=== PATIENT | female | born 1990 | race Caucasian/White ===

== ENCOUNTER 2019-02-23 13:25 | Inpatient (IN) ==
[2019-02-23] MEDS ORDERED: TYLENOL PO ONE (13:40)
[2019-02-23] MEDS ORDERED: NS 1,000 ML IV ONE ×2 (13:40→15:02)
--- NOTE | 2019-02-23 13:55 | PROVIDER DOCUMENTATION ---
HPI-General Adult - General Chief Complaint: Fever Stated Complaint: FEVER,SHAKING Time Seen by Provider: 02/23/19 13:39 Source: patient Allergies/Adverse Reactions: Patient Allergies Allergy/AdvReac Type Severity Reaction Status Date / Time No Known Allergies Allergy Verified 12/31/18 10:01 Home Medications: Home Medication List Medication Instructions Recorded Confirmed Last Taken Type Bupropion HCl [Wellbutrin Xl] 300 mg PO DAILY 12/03/17 06/19/18 12/02/17 08:00 History Clonidine [Catapres] 0.5 mg PO DAILY 06/19/18 06/19/18 Unknown History Cyclobenzaprine [Flexeril] 10 mg PO TID #20 tab 06/19/18 Unknown Rx Duloxetine [Cymbalta] 60 mg PO DAILY 06/19/18 06/19/18 Unknown History Gabapentin 300 mg PO TID 06/19/18 06/19/18 Unknown History Quetiapine Fumarate [Seroquel] 300 mg PO HS 06/19/18 06/19/18 Unknown History Permethrin 5% Cream [Elimite 5% 1 applicatn TOP NOW 2 Days tube 12/31/18 Unknown Rx Cream] Ondansetron [Zofran] 4 mg PO Q8HR PRN #20 tab 02/15/19 Unknown Rx Loratadine [Claritin] 10 mg PO DAILY #30 cap 02/17/19 Unknown Rx - History of Present Illness -Gen Adult Nature of Presenting Problems: Pt. is 29 yof that presents with c/o fever, and body aches for 6 days. Pt. reports she went to another ED and was told she had allergies. Pt. reports something isn't right. She states she has been coughing and is a smoker. She denies taking any medications. Location of Pain/Injury: reports: generalized. denies: none, head, face, mouth, neck, chest, upper extremity, hand(s), abdomen, back, pelvis, genitalia, lower extremity, feet, upper body, lower body, other Pain Radiation: reports: no radiation. denies: arm(s), back, buttocks, chest, epigastric, feet, groin, jaw, flank (L), legs (lower), LLQ, LUQ, neck, periumbilical, flank (R), RLQ, RUQ, shoulder(s), scapula, scrotal, sternal notch, suprapubic, legs (upper), urethral, vaginal, other Quality of Pain: reports: aching. denies: burning, cramping, pressure, stabbing, throbbing, tightness Severity: reports: moderate. denies: mild, severe Onset/Duration: reports: gradual, 6 days ago Timing: reports: still present, changing over time, getting worse. denies: improving, gone now, constant Context/Activities at Onset: reports: none. denies: light activity, moderate activity, vigorous activity, recent emotional stress, recent physical stress, recent trauma history, possible bad food, cold exposure, eating, out of country travel, rest, sleep, sexual activity, other Modifying Factors: improves with: nothing Associated Symptoms: reports: cough, fever/chills, muscle aches. denies: denies symptoms, anxiety, arm pain, back/neck pain, chest pain, constipation, diaphoresis, diarrhea, dizziness, EENT symptoms, fatigue, genitourinary problems, headaches, heartburn, joint pain, loss of appetite, malaise, sinus congestion/drainage, nausea, rash, seizure, shortness of breath, sensory/motor loss, pain with inspiration, swelling/mass in abdomen, syncope, vomiting, weakness, trouble walking, other Similar Symptoms Previously?: Yes Recently seen or treated by another doctor?: Yes Review of Systems - Adult - REVIEW OF SYSTEMS - ADULT Constitutional: reports: see HPI, chills, fever. denies: fatique, night sweats, weight loss Eyes: reports: no symptoms reported Ears, Nose, Mouth & Throat: reports: no symptoms reported Respiratory: reports: see HPI, cough. denies: dyspnea on exertion, pleurisy, wheezing Gastrointestinal: reports: see HPI, abdominal pain, nausea, vomiting. denies: constipation, diarrhea, frequent heartburn Genitourinary: reports: no symptoms reported Musculoskeletal: reports: see HPI, muscle aches. denies: back pain, joint pain, neck pain Integumentary: reports: no symptoms reported Neurological: reports: no symptoms reported Psychiatric: reports: no symptoms reported Past History - Adult - PAST MEDICAL HISTORY-ADULT Review of Records: reports: Old Records Reviewed, Nursing Assessment Review, Medications Reviewed, Social history reviewed & non-contributory. Major Childhood Illnesses: reports: denies history Cardiovascular: reports: denies history. denies: HTN Respiratory: reports: denies history Gastrointestinal: reports: denies history. denies: GERD Obstetrical/Gynecological: reports: denies history Genitourinary: reports: denies history Musculoskeletal: reports: denies history Neurological: reports: denies history Endocrine/Immune: reports: denies history Other Conditions: reports: other ( hydradenitis) - PRIOR SURGERIES/PROCEDURES Surgical/Procedure History: reports: none - IMMUNIZATION STATUS Childhood Immunizations: See Nurse Assessment Flu Vaccine: See Nurse Assessment - FAMILY HISTORY Family History: reviewed, not pertinent - SOCIAL HISTORY Smoking: cigarettes, greater than 1 pack/day Provider spent 3-5 mins advising pt. on dangers of tobacco.: Discussed manners to quit use, and f/u contacts for add'l counseling. Physical Exam-General - PHYSICAL EXAM-ADULT Initial Vital Signs Reviewed: Yes - CONSTITUTIONAL General Appearance: alert, mild distress. negative: anxious, obtunded, combative - EYES Eyes: PERRL/EOMI, pink conjunctivae. negative: pale conjunctivae, photophobia, subconjunctival hemorrhage - HEAD, EARS, NOSE, MOUTH & THROAT HENMT: normocephalic/atraumatic, moist mucous membranes. negative: angioedema, frontal tenderness, maxillary tenderness - NECK Neck: non-tender, full range of motion, supple, normal inspection. negative: lymphadenopathy, trachial deviation, thyromegaly - RESPIRATORY Respiratory: lungs clear, normal breath sounds. negative: crackles, rales, rhonchi, stridor, wheezing - CARDIOVASCULAR Cardiovascular: regular rate, rhythm, no edema, tachycardia. negative: extra beats, friction rub, irregularly irregular - GASTROINTESTINAL (ABDOMEN) Abdominal Exam: normal bowel sounds, non tender, soft. negative: rigid, rebound, tenderness, hernia, mass - LYMPHATIC Lymphatic: no adenopathy. negative: axilla node tender, cervical node tenderness - MUSCULOSKELETAL Back Exam: normal inspection, no CVA tenderness, no vertebral tenderness. negative: muscle spasm, swelling, vertebral tenderness Extremity: normal range of motion, non-tender, normal gait, normal inspection. negative: deformity, erythema, inflammation, swelling, tenderness Peripheral Pulses: radial (R): 2+, radial (L): 2+ - SKIN Integumentary: normal color, normal turgor, warm/dry. negative: cyanosis, erythema, jaundice, pallor, tenderness - NEUROLOGIC Neurologic: grossly normal, no motor/sensory deficits. negative: aphasia, motor weakness, sensory deficit - PSYCHIATRIC Psych/Mental Status: normal mood/affect, normal thought content, normal thought process, oriented x 3. negative: anxious, paranoid, tearful Progress - PLAN OF CARE/RESULTS Progress/Plan/Lab Results: Vital Signs - 8 hr 02/23/19 13:34 Temperature 102.7 F H Pulse Rate 132 H Respiratory Rate 20 Blood Pressure 108/66 O2 Sat by Pulse Oximetry 97 Orders Category Date Time Status ED: Urine Bedside ORDERED Care 02/23/19 13:39 Active Saline Loc NOW Care 02/23/19 13:39 Active BLOOD CULTURE [BLDCUL] Stat Lab 02/23/19 13:40 Uncollected CBC WITH ELECTRONIC DIFF [HEME] Stat Lab 02/23/19 13:40 Uncollected CK PROFILE [SP CHEM] Stat Lab 02/23/19 13:40 Uncollected COMPREHENSIVE METABOLIC PANEL [CHEM] Stat Lab 02/23/19 13:40 Uncollected INFLUENZA SCREEN A/B Stat Lab 02/23/19 13:51 Uncollected LACTATE, PLASMA [CHEM] Stat Lab 02/23/19 13:40 Uncollected PROTIME WITH INR [COAG] Stat Lab 02/23/19 13:40 Uncollected PTT [COAG] Stat Lab 02/23/19 13:40 Uncollected URINALYSIS W/POSS RFLX CULT [URINALYSIS] Stat Lab 02/23/19 13:39 Uncollected 0.9% Sodium Chloride Inj [Ns] 1,000 ml Med 02/23/19 13:40 Active IV 999 mls/hr Acetaminophen [Tylenol] Med 02/23/19 13:40 Discontinued 1,000 mg PO NOW ONE Result Diagrams: 02/23/19 13:58 02/23/19 13:58 - XRAY 1 XRAY Study: Chest ([facility] [address], [address], [place] [id number] Department of Imaging Patient: KEVIN SALMONADM Date: 02/23/19MR#: [id number] : 1990[id number] Age/Sex: 29/FRoom/Bed: Loc: ED Ordering Physician: Candelario Carias Family Physician: Leandro Lee Reason for Procedure: fever Signed EXAM: CHEST-2 VIEWS HISTORY: fever TECHNIQUE: Chest two views COMPARISON: 04/22/2018 FINDINGS: The lungs are well expanded. The heart is not enlarged. The vessels are not distended. There are no infiltrates. No pleural effusions. Mild to moderate scoliosis. IMPRESSION: No pneumonia. Electronically signed by Amando Mcconnell 02/23/2019 3:05 PM 02/23/19 1505 Interpreting Physician: Amando Mcconnell MD Dictated Date/Time: 02/23/19 1505 cc: Candelario Carias; Leandro Lee) XRAY Interpretation: See note - CONSULTS/PCP/HOSPITALIST Notification #1 *Consult/PCP/Hospitalist*: Yasmeen Chapa Time Discussed: 15:12 Reason/Comments: Admission Consult Disposition: Will see in ED Departure - Departure Date of Disposition Decision: 02/23/19 Time of Disposition Decision: 15:03 DIAGNOSIS: Sepsis due to urinary tract infection, Hypokalemia, Hypocalcemia Disposition: ADMITTED INPATIENT 09 Certified Medical Emergency: Emergent Condition: Stable Referrals and Follow-Ups: Leandro Lee [Primary Care Provider] - - Critical Care Note This patient required my direct & personal management of CC.: No Attestation - Physician/ PÉREZ Attestation Patient care was provided by Advanced Practice Provider:: Yes Advanced Practice Provider:: Candelario Carias Advanced Practice Provider documentation review:: The Mid-level provider documentation, treatment plan and medical decision making was reviewed by the physician who agrees with all treatment and medical decision making by the MLP. The physician spent face to face time with patient:: No Advanced Practice Provider documentation review:: Supervising physician onsite and consulted in the evaluation and care of this patient. The physician did not have a face to face encounter with the patient.
[2019-02-23 14:26] LABS: INR 1.23; PROTIME 16.4 Seconds (11.0-16.0)
[2019-02-23 14:27] LABS: BASO# 0.01 X1000 (0.0-0.2); BASO% 0.1 % (0.0-0.8); EOS# 0.01 X1000 (0.0-0.7); EOS% 0.1 % (0.0-10.0); IMM GRAN# 0.07 X1000 (0.0-0.04); IMM GRAN% 0.4 % (0.0-0.5); LYMPH# 1.25 X1000 (1.2-3.4); LYMPH% 6.5 % (20.5-51.1); MCH 30.6 PG (27-31); MCHC 33.3 g/dL (33-37); MCV 91.7 FL (81-99); MONO# 1.32 X1000 (0.11-0.59); MONO% 6.9 % (1.7-9.3); NEUT# 16.48 X1000 (1.4-6.5); PLT 241 X1000 (130-400); PTT 41.7 Seconds (22.3-41.8); RBC 3.27 XMIL (4.2-5.4); RDW 12.6 % (11.5-14.5); WBC 19.14 X1000 (4.8-10.8)
[2019-02-23 14:34] LABS: URINE SOURCE CLEAN CATCH
[2019-02-23 14:42] LABS: BILIRUBIN URINE NEGATIVE (NEGATIVE); BLOOD URINE TRACE (NEGATIVE); COLOR YELLOW; GLUCOSE URINE NEGATIVE (NEGATIVE); KETONE URINE NEGATIVE (NEGATIVE); LEUKOCYTES URINE LARGE (NEGATIVE); NITRITE URINE POSITIVE (NEGATIVE); PROTEIN URINE 200 mg/dL (NEGATIVE); SP GRAVITY URINE 1.008; TURBIDITY URINE HAZY (CLEAR); UROBILINOGEN URINE NORMAL (NORMAL)
[2019-02-23 14:44] LABS: UR EPITHELIAL CELLS >10 /HPF (<10); URINE BACTERIA 2+ /HPF; URINE RBC <10 /HPF (<10); URINE WBC TNTC /HPF (<10)
[2019-02-23] MEDS ORDERED: ROCEPHIN 1 GM in NS 50 ML IV ONE (14:46)
[2019-02-23 14:58] LABS: AGAP 11; ALB/GLOB RATIO 0.9; ALBUMIN 3.1 g/dL (3.5-5.0); ALKALINE PHOSPHATASE 135 U/L (32-104); BUN 7 mg/dL (8-22); CHLORIDE 98 mmol/L (98-107); CK PROFILE 30 U/L (24-173); COSMO 271; CREATININE 0.9 mg/dL (0.5-0.9); ESTIMATED GFR > 60; GLUCOSE 151 mg/dL (70-104); GOT 6 U/L (10-30); GPT 8 U/L (10-36); SODIUM 135 mmol/L (136-145); TCO2 26 mmol/L (25-35); TOTAL BILIRUBIN 0.36 mg/dL (0.20-1.00); TOTAL PROTEIN 6.6 g/dL (6.3-8.3)
[2019-02-23] MEDS ORDERED: KLOR-CON PO ONE (15:01)
[2019-02-23] MEDS ORDERED: LEVAQUIN 750 MG/D5W 750 MG/150 ML IVPB IV ONE (15:03)
--- NOTE | 2019-02-23 15:07 | Diag Imaging Result Doc PS360 ---
EXAM: CHEST-2 VIEWS HISTORY: fever TECHNIQUE: Chest two views COMPARISON: 04/22/2018 FINDINGS: The lungs are well expanded. The heart is not enlarged. The vessels are not distended. There are no infiltrates. No pleural effusions. Mild to moderate scoliosis. IMPRESSION: No pneumonia. Electronically signed by Amando Mcconnell 02/23/2019 3:05 PM
[2019-02-23] MEDS: NS 1,000 ML IV SCH (15:45)
[2019-02-23] MEDS ORDERED: VANCOMYCIN IV PER PHARMACY MISC SCH (16:00)
[2019-02-23 16:18] LABS: IRON SATURATION 7 %; TIBC 151 ug/dL; TOTAL IRON 10 ug/dL (49-151); UNBOUND IRON 141 ug/dL (112-346)
--- NOTE | 2019-02-23 16:28 | HISTORY AND PHYSICAL ---
PRIMARY CARE PROVIDER: Dr. Lee. CHIEF COMPLAINT: Cold sweats, achy body, headache, and strong smelling urine. HISTORY OF PRESENT ILLNESS: Ms. Ramona Sinclair is a 29-year-old female with a medical history of anxiety, depression, schizoaffective disorder, bipolar disorder, and PTSD who states a week ago she presented to [facility] due to falling down a wheelchair ramp and hitting the back of her head and then she also represented to [facility] three days ago with complaints of achy body, cold sweats, and headache. She was diagnosed with seasonal allergies and sent home with Claritin. Today she presents with a white blood cell count of 19,000 and fever of 102.7. She has the same complaints of cold sweats, achy body, headache, strong smelling urine, and frequent urination but small amounts. Urinalysis reveals positive nitrate urinary tract infection along with tachycardia and elevated white count. Lactate is normal but is heading towards sepsis. Blood pressure is stable, so will admit and hydrate her and give her antibiotics, at least overnight. Other symptoms she had were nausea as well as some loose stools, but no abdominal pain. PAST MEDICAL HISTORY: 1. Anxiety and depression. 2. Schizoaffective disorder. 3. PTSD. 4. Bipolar disorder, type II. SURGICAL HISTORY: None. FAMILY HISTORY: Her mother had diabetes, myocardial infarction, hyperlipidemia, and hypertension. Her father had coronary artery disease, diabetes, dementia, and CKD. SOCIAL HISTORY: A half pack per day smoker since age of 9. Denies alcohol or illicit drug use. She is in the room with a male restaurant greeter and two children. ALLERGIES: No known drug allergies. HOME MEDICATIONS: Have not been reconciled, but looks like she is on 1. Catapres. 2. Cymbalta. 3. Neurontin. 4. Seroquel. 5. Wellbutrin. 6. Zofran. 7. Claritin. 8. Elimite. 9. Flexeril. REVIEW OF SYSTEMS: A 14-point review of systems are complete and all are negative except for those mentioned in the above HPI. PHYSICAL EXAMINATION: VITAL SIGNS: Temperature is 102.7, probably back down now, heart rate was 99 at the bedside, last recorded 103, respiratory rate 19, blood pressure 116/72, and O2 saturation 99% on room air. GENERAL: Ms. Ramona Sinclair is a 29-year-old female. She is in no acute distress. She is able to answer questions appropriately. HEENT: Atraumatic. Normocephalic. Pupils equal, round, and reactive to light. Extraocular movements intact. Mucous membranes are dry. NECK: Trachea is midline. CARDIOVASCULAR: S1 and S2. Regular rate and rhythm. No rubs, gallops, or murmurs. No lower extremity edema. +2 dorsalis and radial pulses. Negative JVD or carotid bruits. PULMONARY: Clear to auscultate bilateral breath sounds. No accessory muscle use or work of breathing noted. GI: Soft, nontender, and nondistended. Positive bowel sounds x4. EXTREMITIES: Moves all extremities equally with full range of motion. NEURO: Alert and oriented x3. Follows commands. Sensory is intact. SKIN: Warm, dry, and intact. LABORATORY DATA: White blood cells 19,000, hemoglobin 10, hematocrit 30, and platelet count 241. INR is 1.23. PTT is 41.7. Sodium 135, potassium 3.0, BUN 11, creatinine 0.9, glucose 151, calcium 8.0, bilirubin 0.36, AST 6, ALT 8. CK 30. Albumin 3.1. Serum lactate 1.3. Urinalysis with 200 protein, trace of blood, positive nitrite, large leukocytes, too numerous to count white blood cells, 2+ bacteria. Microbiology - blood cultures x2 obtained. Urine culture pending. Influenza screen negative. IMAGING: Chest x-ray: Negative for any acute findings. ASSESSMENT AND PLAN: 1. Urinary tract infection now with positive nitrites. She got Rocephin and Mell in the emergency room. Will continue with Rocephin for in the morning and likely can be discharged with oral Levaquin. She is receiving intravenous fluid hydration. 2. Lactate negative sepsis secondary to urinary tract infection unless the blood cultures come back positive. Those have been obtained and are pending. Will add some vancomycin just in case there is some issue with bacteremia, as that is even a possibility. She does deny any kind of illicit drug use. 3. Anxiety, depression, schizoaffective disorder, post traumatic stress disorder, and bipolar. She is on several home medications to treat these and will resume those once they are verified by nursing staff. Medication reconciliation will need to be rechecked. 4. Tobacco abuse. Cessation discussed. 5. Hypokalemia. That has been replaced with 20 mEq of oral potassium. 6. Nausea. Antiemetics. 7. Diarrhea. Will do some stool studies. 8. Hyperglycemia. Will check a hemoglobin A1c. Looks like her mom and her dad had diabetes. 9. Anemia. Will check anemia panel and stool for blood as well. 10.Deep venous thrombosis prophylaxis. Sequential compression devices. Dictated by SANTA Crespo for Paulino Chapa MD cc: SANTA Crespo MD
[2019-02-23 16:38] LABS: FREE T4 0.94 ng/dL (0.93-1.70); TSH 0.41 uIUmL (0.27-4.20)
[2019-02-23] MEDS: ROCEPHIN 1 GM in NS 50 ML IV SCH (17:11)
[2019-02-23] MEDS: ZOFRAN IV PRN (18:00)
[2019-02-23] MEDS: PRILOSEC PO SCH (18:00)
--- NOTE | 2019-02-23 18:13 | HISTORY AND PHYSICAL ---
ADDENDUM: Today I saw Ms. Sinclair in the ER. I have seen, I have examined her, I have reviewed her laboratory data as well as her imaging data. Briefly Ms Sinclair presents today because of fever and chills which has been going on for about 4 days associated with frequent bowel movement which is diarrhea and nausea and vomiting. She also refers that her urine has been smelling and she is having frequent urination. Upon presentation she was found to have a temperature of 102.7 degrees with a pulse rate of 132 with a normal blood pressure. Her physical exam was significant for mildly dry mucous membrane and she also has positive left side CVA tenderness. Her lab works is significant for leukocytosis predominantly neutrophilic and her chemistry has hyponatremia with hypokalemia. A chest x-ray this morning revealed unremarkable studies with no pneumonia. ASSESSMENT: 1. Sepsis which could be a combination of urinary tract infection and gastroenteritis. 2. Suspected left pyelonephritis. Patient has been started on intravenous antibiotics. Urine culture has also been ordered. We will follow up accordingly. So far we have not done any abdominal imaging. If patient does not improve with initial management we will scan the abdomen as needed. 3. Nausea and vomiting associated with diarrhea consistent with gastroenteritis most likely viral in etiology. We will do stool studies and follow it up accordingly. 4. Tobacco abuse. Cessation has been discussed. 5. History of anxiety, schizoaffective disorder and posttraumatic stress disorder. The patient will be started on her home medications once she is hemodynamically stable. Blood culture, urine culture have all been done. Patient has been started on IV ceftriaxone. We will follow up on the culture. Replace the current electrolyte abnormalities. I agree with H and P and the plan as dictated in the chart. cc: Paulino Chapa MD [facility]
[2019-02-23] MEDS: TYLENOL PO PRN (18:56)
[2019-02-23] MEDS ORDERED: VANCOMYCIN 2 GM in NS 500 ML IV ONE (19:30)
[2019-02-24] MEDS: ZOFRAN IV PRN (02:31)
[2019-02-24] MEDS: TYLENOL PO PRN ×3 (02:31→16:35)
[2019-02-24] MEDS: NS 1,000 ML IV SCH ×3 (06:28→13:46)
[2019-02-24 08:02] LABS: BASO# 0.01 X1000 (0.0-0.2); BASO% 0.1 % (0.0-0.8); EOS# 0.03 X1000 (0.0-0.7); EOS% 0.2 % (0.0-10.0); HEMATOCRIT 30.5 % (37.0-47.0); HEMOGLOBIN 9.9 g/dL (12.0-16.0); IMM GRAN# 0.07 X1000 (0.0-0.04); IMM GRAN% 0.5 % (0.0-0.5); LYMPH# 1.74 X1000 (1.2-3.4); LYMPH% 11.6 % (20.5-51.1); MCH 30.2 PG (27-31); MCHC 32.5 g/dL (33-37); NEUT# 12.01 X1000 (1.4-6.5); NEUT% 79.6 % (42.2-75.2); PLT 250 X1000 (130-400); RBC 3.28 XMIL (4.2-5.4); RDW 12.7 % (11.5-14.5); WBC 15.06 X1000 (4.8-10.8)
[2019-02-24 08:19] LABS: INR 1.28
[2019-02-24 08:20] LABS: PTT 42.7 Seconds (22.3-41.8)
[2019-02-24 08:27] LABS: AGAP 10; ALB/GLOB RATIO 0.6; ALBUMIN 2.4 g/dL (3.5-5.0); ALKALINE PHOSPHATASE 121 U/L (32-104); BUN 6 mg/dL (8-22); CALCIUM 7.9 mg/dL (8.8-10.2); CHLORIDE 107 mmol/L (98-107); COSMO 278; CREATININE 0.8 mg/dL (0.5-0.9); ESTIMATED GFR > 60; GLUCOSE 79 mg/dL (70-104); GOT 5 U/L (10-30); GPT 7 U/L (10-36); MAGNESIUM 2.1 mg/dL (1.5-2.7); POTASSIUM 3.2 mmol/L (3.5-5.1); SODIUM 141 mmol/L (136-145); TCO2 24 mmol/L (25-35); TOTAL BILIRUBIN 0.31 mg/dL (0.20-1.00); TOTAL PROTEIN 6.2 g/dL (6.3-8.3)
[2019-02-24 08:31] LABS: HEMOGLOBIN A1C 4.9 % (4.8-6.0)
[2019-02-24] MEDS: PRILOSEC PO SCH (09:37)
[2019-02-24] MEDS ORDERED: KLOR-CON PO ONE (13:05)
[2019-02-24] MEDS: ROCEPHIN 1 GM in NS 50 ML IV SCH (14:27)
--- NOTE | 2019-02-24 14:51 | PROGRESS NOTE ---
DATE: 02/24/2019 SUBJECTIVE: Patient reports feeling fine, not nauseated, no fever reported. OBJECTIVE: Vitals: Temperature 98.5 degrees, heart rate 87, respiratory 15, blood pressure 134/73, O2 saturation 100% on room air. General: This is a 29-year-old female lying in bed in no acute distress. Cardiovascular: S1, S2 heard. No murmurs, gallops, or rubs. Regular rate and rhythm. Respiratory: Clear bilaterally to auscultation. No work of breathing or using accessory muscles. Abdomen: Soft, nontender to palpation. Bowel sounds present. No organomegaly. Extremities: No clubbing, cyanosis or edema. Peripheral pulses present in both legs. Neurologic: Patient alert, oriented x3, moves 4 extremities. LABORATORY DATA: Reviewed. ASSESSMENT AND PLAN: 1. Sepsis secondary to urinary tract infection, gastroenteritis. Clinically this patient is doing better, not having fever in the last 24 hours. Definitely less pain in the left side. At this point will continue with ceftriaxone. Result the urine cultures still pending. Will continue to monitor this patient closely. 2. Left pyelonephritis on antibiotics as above. 3. Nausea, vomiting/diarrhea getting better. Will continue with IV fluids. 4. Tobacco abuse. Patient advised to stop smoking. 5. History of schizoaffective disorder, posttraumatic stress disorder. Will continue home medications. 6. Disposition. At this point will wait for results of urine culture and if she is feeling okay patient can be treated with oral medication and we can discharge her between tomorrow and the day after. cc: Sathya Robledo MD
[2019-02-24] MEDS: VANCOMYCIN 1,700 MG in NS 250 ML IV SCH (15:10)
[2019-02-24] MEDS: FLEXERIL PO SCH (18:05)
[2019-02-24] MEDS: NEURONTIN PO SCH (18:05)
[2019-02-24] MEDS: KLONOPIN PO SCH (20:59)
[2019-02-24] MEDS ORDERED: SEROQUEL PO SCH (21:00)
[2019-02-25] MEDS: NS 1,000 ML IV SCH ×2 (03:24→09:44)
[2019-02-25] MEDS: TYLENOL PO PRN (04:44)
[2019-02-25] MEDS: PRILOSEC PO SCH (06:29)
[2019-02-25 07:06] LABS: BASO# 0.01 X1000 (0.0-0.2); BASO% 0.1 % (0.0-0.8); EOS# 0.06 X1000 (0.0-0.7); EOS% 0.6 % (0.0-10.0); HEMATOCRIT 28.6 % (37.0-47.0); HEMOGLOBIN 9.4 g/dL (12.0-16.0); IMM GRAN# 0.06 X1000 (0.0-0.04); IMM GRAN% 0.6 % (0.0-0.5); LYMPH# 1.53 X1000 (1.2-3.4); LYMPH% 14.3 % (20.5-51.1); MCH 30.5 PG (27-31); MCHC 32.9 g/dL (33-37); MCV 92.9 FL (81-99); MONO# 0.79 X1000 (0.11-0.59); MONO% 7.4 % (1.7-9.3); NEUT# 8.28 X1000 (1.4-6.5); PLT 252 X1000 (130-400); RBC 3.08 XMIL (4.2-5.4); RDW 12.8 % (11.5-14.5); WBC 10.73 X1000 (4.8-10.8)
[2019-02-25 07:56] LABS: AGAP 10; BUN 5 mg/dL (8-22); CALCIUM 8.2 mg/dL (8.8-10.2); CHLORIDE 109 mmol/L (98-107); COSMO 280; CREATININE 0.9 mg/dL (0.5-0.9); ESTIMATED GFR > 60; GLUCOSE 84 mg/dL (70-104); POTASSIUM 3.8 mmol/L (3.5-5.1); SODIUM 142 mmol/L (136-145); TCO2 23 mmol/L (25-35)
[2019-02-25] MEDS ORDERED: CLARITIN PO SCH (09:00)
[2019-02-25] MEDS ORDERED: WELLBUTRIN XL PO SCH (09:00)
[2019-02-25] MEDS ORDERED: CYMBALTA PO SCH (09:00)
[2019-02-25] MEDS: VANCOMYCIN 1,700 MG in NS 250 ML IV SCH (09:44)
[2019-02-25] MEDS: KLONOPIN PO SCH (09:45)
[2019-02-25] MEDS: FLEXERIL PO SCH (09:45)
[2019-02-25] MEDS: NEURONTIN PO SCH (09:45)
[2019-02-25 11:50] VITALS: BP 137/81
--- NOTE | 2019-02-25 20:57 | DISCHARGE SUMMARY ---
ADMISSION DATE: 02/23/2019 DISCHARGE DATE: 02/25/2019 DISPOSITION: Home. FOLLOWUP: Will be with primary care doctor, Leandro Lee MD. CONSULTATION: During this admission, none. IMAGING STUDIES: Of significance, a chest x-ray showed no pneumonia. MICROBIOLOGY DATA: Urine culture was positive for E coli which was pansensitive. A blood culture 48 hours was negative. Stool studies were completely unremarkable. ADMISSION DIAGNOSES: 1. Urinary tract infection. 2. Lactate negative sepsis. 3. Anxiety. 4. Tobacco abuse. DISCHARGE DIAGNOSES: 1. Sepsis secondary to urinary tract infection and gastroenteritis. 2. E coli, left pyelonephritis. 3. Viral gastroenteritis. 4. Tobacco abuse. 5. History of schizoaffective disorder and anxiety depression disorder. DISCHARGE MEDICATIONS: 1. Bupropion 300 mg daily. 2. Cymbalta 60 mg daily. 3. Gabapentin 300 mg 3 times per day. 4. Seroquel 300 p.o. at bedtime. 5. Flexeril 10 mg 3 times per day. 6. Claritin. 7. Klonopin 0.5 b.i.d. 8. Cephalexin 500 b.i.d. for 7 days. PRESENTING COMPLAINT: Cold sweats, headache, strong urine smell. HISTORY OF PRESENTING COMPLAINT: Ms. Sinclair is a 29-year-old, female, who is known to have anxiety, depression and schizoaffective disorder, came to the emergency department because of chills, urine discomfort and generalized aches, diarrhea and nausea. The patient was evaluated, was found to have abnormal urinalysis. Her presenting temperature was 102.7, did show signs of toxicity, so she was subsequently admitted for further medical care. HOSPITAL COURSE: Ms. Sinclair was admitted to the medical floor and was adequately hydrated. Urine and blood cultures were done. She was started on broad-spectrum IV antibiotics. She did improve and responded very well to the initial management. Today, her vitals have been stable. Blood pressure is 137/81, pulse is 77, respirations 22, temperature 99. She is completely asymptomatic. The left CVA tenderness is completely gone. Urine culture has come back positive for E coli which is pansensitive. The patient was already on ceftriaxone for 2 days. This will be switched to oral cefazolin and she will complete treatment for 10 days. Ms. Sinclair is also supposed to follow up with Dr. Lee. Other discharge instructions have been discussed with him. The boyfriend was at the bedside with her at the time of the discharge encounter and both expressed understanding of the recommendations. TIME SPENT: For discharge is 32 minutes. cc: Paulino Chapa MD
== END 2019-02-25 13:45 | disposition home or self-care (01) | DRG 872 ==
LOC: ED 13:25 → 3N 13:25 → OBSVTOIN 16:43 → SUATTDRO 16:43
PROVIDERS: ATTEND Internal Medicine
CPT/HCPCS: 71020; 71046; 80048; 80053; 80061; 81001; 81025; 82270; 82550; 82607; 82728; 82746; 83036; 83540; 83550; 83605; 83721; 83735; 84439; 84443; 85025; 85610; 85730; 87040; 87045; 87046; 87077; 87088; 87186; 87205; 87275; 87276; 87324; 87449; 87804; 89055; 96365; 96366; 96368; 99285; A9270; J0696; J1956; J2405; J3370; J7030; J7040; J7050